=== PATIENT | female | born 1955 | race Caucasian/White ===

== ENCOUNTER 2021-07-21 11:29 | Emergency (ER) | payer MEDICARE, OTHER ==
[2021-07-21] MEDS ORDERED: LORazepam 0.5 MG Tab PO ONE (11:40)
--- NOTE | 2021-07-21 11:44 | EDM.PDOC ---
ED HPI GENERAL MEDICAL PROBLEM - General Stated Complaint: SOB AND COUGHING UP BLOOD Time Seen by Provider: 07/21/21 11:30 Source of Information: Reports: Patient, EMS, Other (friend) History Limitations: Reports: No Limitations - History of Present Illness INITIAL COMMENTS - FREE TEXT/NARRATIVE: Patient brought by EMS with dyspnea and right anterior chest/rib pain. A friend was driving her to ER and was in [place] when she noticed patient was having difficulty breathing. She stopped and waved down a policement passing by. He found patient unresponsive and pulled her out and lay her on the ground. He gave a single chest compression, friend reports, and patient became responsive. She has COPD and also says she had the lower lobe of her right lung and 3 ribs removed. She also says she has a large clot in her left lung that she is worried might "pop". She has been coughing up a little blood the past 3-4 weeks. She isn't aware of any TB. - Related Data Allergies Allergy/AdvReac Type Severity Reaction Status Date / Time No Known Allergies Allergy Verified 07/21/21 11:34 Home Meds: Home Meds Alendronate Sodium [Fosamax] 70 mg PO DAILY 07/21/21 [History] FLUoxetine HCl [Fluoxetine HCl] 20 mg PO DAILY 07/21/21 [History] Naproxen [Naprosyn] 500 mg PO BID 07/21/21 [History] OXcarbazepine [Oxcarbazepine] 300 mg PO BID 07/21/21 [History] busPIRone HCl [Buspirone HCl] 15 mg PO BID 07/21/21 [History] ED ROS GENERAL - Review of Systems Review Of Systems: See Below Constitutional: Denies: Fever, Chills, Weakness HEENT: Denies: Ear Pain, Throat Pain, Vision Change Respiratory: Reports: Shortness of Breath, Cough, Hemoptysis Cardiovascular: Reports: Chest Pain (lower right anterior rib/chest wall) GI/Abdominal: Denies: Abdominal Pain, Vomiting : Denies: Dysuria, Flank Pain Musculoskeletal: Denies: Neck Pain, Shoulder Pain, Arm Pain, Back Pain, Hand Pain Skin: Denies: Cyanosis, Jaundice, Mottled, Pallor Neurological: Denies: Confusion, Dizziness, Headache, Trouble Speaking Psychiatric: Reports: Anxiety. Denies: Agitation ED EXAM, GENERAL - Physical Exam Exam: See Below Exam Limited By: No Limitations General Appearance: Alert, WD/WN, No Apparent Distress Eye Exam: Bilateral Eye: EOMI, Normal Inspection, PERRL Ears: Normal External Exam, Hearing Grossly Normal Nose: Normal Inspection, No Blood Throat/Mouth: Normal Inspection, Normal Lips, Normal Voice, No Airway Compromise Head: Atraumatic, Normocephalic Neck: Normal Inspection, Full Range of Motion Respiratory/Chest: No Respiratory Distress (initially she was tachypneic and working hard to breathe, very anxious; at discharge breathing was nonlabored and appeared normal.), Rales (mild in lung bases). No: Decreased Breath Sounds Cardiovascular: Regular Rate, Rhythm, No Edema GI/Abdominal: Normal Bowel Sounds, Soft, Non-Tender, No Organomegaly, No Distention Back Exam: Normal Inspection, Full Range of Motion. No: CVA Tenderness (L), CVA Tenderness (R) Extremities: Normal Inspection, Normal Range of Motion Neurological: Alert, Oriented, Normal Cognition, No Motor/Sensory Deficits Psychiatric: Normal Affect, Normal Mood Skin Exam: Warm, Dry, Intact, Normal Color, No Rash Course - Vital Signs Last Recorded V/S: Last Vital Signs Temp 96.7 F L 07/21/21 11:35 Pulse 84 07/21/21 11:35 Resp 30 H 07/21/21 11:35 BP 139/100 H 07/21/21 11:35 Pulse Ox 96 07/21/21 11:35 - Orders/Labs/Meds Labs: Laboratory Tests 07/21/21 07/21/21 07/21/21 Range/Units 11:50 11:50 11:50 WBC 4.86 L (5.00-10.00) 10^3/uL RBC 4.24 (3.80-5.50) 10^6/uL Hgb 13.6 (12.0-16.0) g/dL Hct 40.2 (37.0-47.0) % MCV 94.8 H (82.0-92.0) fL MCH 32.1 H (27.0-31.0) pg MCHC 33.8 (32.0-36.0) g/dL RDW 13.1 (11.5-14.5) % Plt Count 338 (150-400) 10^3/uL MPV 8.7 (7.4-10.4) fL Immature Gran % (Auto) 0.6 (0.0-5.0) % Neut % (Auto) 49.4 L (50.0-70.0) % Lymph % (Auto) 31.3 (20.0-40.0) % [place] % (Auto) 12.6 H (2.0-8.0) % Eos % (Auto) 5.1 H (1.0-3.0) % Baso % (Auto) 1.0 (0.0-1.0) % Neut # (Auto) 2.40 L (2.50-7.00) 10^3/uL Lymph # (Auto) 1.52 (1.00-4.00) 10^3/uL [place] # (Auto) 0.61 (0.10-0.80) 10^3/uL Eos # (Auto) 0.25 (0.10-0.30) 10^3/uL Baso # (Auto) 0.05 (0.00-0.10) 10^3/uL Immature Gran # (Auto) 0.03 (0.00-0.50) 10^3/uL Sodium 136 (136-145) mmol/L Potassium 4.3 (3.5-5.1) mmol/L Chloride 102 (98-107) mmol/L Carbon Dioxide 25.3 (21.0-32.0) mmol/L Anion Gap 13.0 (5-15) mmol/L BUN 15 (7-18) mg/dL Creatinine 0.82 (0.51-1.17) mg/dL Est Cr Clr Drug Dosing 64.03 mL/min Estimated GFR (MDRD) > 60 mL/min Glucose 98 (70-140) mg/dL Lactic Acid 0.9 (0.4-2.0) mmol/L Calcium 8.7 (8.7-10.3) mg/dL Total Bilirubin 0.4 (0.2-1.0) mg/dL AST 21 (15-37) U/L ALT 27 (14-63) U/L Alkaline Phosphatase 97 (46-116) U/L Troponin I High Sens (0-51.000) pg/mL Total Protein 7.2 (6.4-8.2) g/dL Albumin 3.80 (3.40-5.00) g/dL 07/21/21 Range/Units 11:50 WBC (5.00-10.00) 10^3/uL RBC (3.80-5.50) 10^6/uL Hgb (12.0-16.0) g/dL Hct (37.0-47.0) % MCV (82.0-92.0) fL MCH (27.0-31.0) pg MCHC (32.0-36.0) g/dL RDW (11.5-14.5) % Plt Count (150-400) 10^3/uL MPV (7.4-10.4) fL Immature Gran % (Auto) (0.0-5.0) % Neut % (Auto) (50.0-70.0) % Lymph % (Auto) (20.0-40.0) % [place] % (Auto) (2.0-8.0) % Eos % (Auto) (1.0-3.0) % Baso % (Auto) (0.0-1.0) % Neut # (Auto) (2.50-7.00) 10^3/uL Lymph # (Auto) (1.00-4.00) 10^3/uL [place] # (Auto) (0.10-0.80) 10^3/uL Eos # (Auto) (0.10-0.30) 10^3/uL Baso # (Auto) (0.00-0.10) 10^3/uL Immature Gran # (Auto) (0.00-0.50) 10^3/uL Sodium (136-145) mmol/L Potassium (3.5-5.1) mmol/L Chloride (98-107) mmol/L Carbon Dioxide (21.0-32.0) mmol/L Anion Gap (5-15) mmol/L BUN (7-18) mg/dL Creatinine (0.51-1.17) mg/dL Est Cr Clr Drug Dosing mL/min Estimated GFR (MDRD) mL/min Glucose (70-140) mg/dL Lactic Acid (0.4-2.0) mmol/L Calcium (8.7-10.3) mg/dL Total Bilirubin (0.2-1.0) mg/dL AST (15-37) U/L ALT (14-63) U/L Alkaline Phosphatase (46-116) U/L Troponin I High Sens < 4.000 (0-51.000) pg/mL Total Protein (6.4-8.2) g/dL Albumin (3.40-5.00) g/dL Meds: Medications Discontinued Medications Generic Name Dose Route Start Last Admin Trade Name Bre PRN Reason Stop Dose Admin Lorazepam 0.5 mg 07/21/21 11:40 Lorazepam 0.5 Mg Tab PO 07/21/21 11:41 ONETIME ONE - Re-Assessments/Exams Free Text/Narrative Re-Assessment/Exam: 07/21/21 13:02 CBC, CMP, Trop, Lactic acid okay. CXR showing no acute cardiopulmonary abnormality. Patient looking and feeling much better. Not sure why she has coughed up some blood. Discussed findings with patient. She won't be seeing her PCP in [place], [place] until September so I advised seeing a local provider for follow up next week. She says she will see Re Terry in [place]. She also has an appointment for heart and lungs in [place] on Aug 09 she says. She has an unused Rx course of Zithromax her PCP gave her to use as needed for her COPD. I advised she start it today. Patient discharged to home in stable condition. Departure - Departure Time of Disposition: 13:16 Disposition: Home, Self-Care 01 Condition: Good Clinical Impression: Cough with hemoptysis Dyspnea Qualifiers: Dyspnea type: unspecified Qualified Code(s): R06.00 - Dyspnea, unspecified - Discharge Information Additional Instructions: Drink 8 cups of water daily. Start the course of Azithromycin today and take as directed. Follow up with Re Terry or provider of your choice next week for recheck. If worsening, recheck sooner in clinic or ER. Sepsis Event Note (ED) - Focused Exam Vital Signs: Vital Signs Temp Pulse Resp BP Pulse Ox 07/21/21 11:35 96.7 F L 84 30 H 139/100 H 96
[2021-07-21 12:18] LABS: CHLORIDE,CL 102 mmol/L (98-107); SODIUM,NA 136 mmol/L (136-145)
--- NOTE | 2021-07-21 12:24 | CR ---
[id number] RAD/RAD Chest Portable EXAM: RAD Chest Portable INDICATION: DYSPNEA, RIGHT RIB PAIN, COUGHING UP BLOOD THE LAST 3 COMPARISON: None. DISCUSSION: Cardiomediastinal silhouette is normal in size and contour. No infiltrate, effusion, pneumothorax, or edema. Pulmonary hyperinflation. Degenerative changes of the acromioclavicular joints. IMPRESSION: No acute cardiopulmonary abnormality. Payam Westbrook DO 07/21/21 1222 Thank you for allowing us to participate in the care of your patient.
== END 2021-07-21 13:25 | disposition home or self-care (01) ==
LOC: KA.ED 11:29
DX: R04.2 Hemoptysis (principal); R06.02 Shortness of breath; J44.9 Chronic obstructive pulmonary disease, unspecified
CPT/HCPCS: 36415; 71045; 80053; 83605; 84484; 85025; 99283; 99285-25